=== PATIENT | female | born 1985 | race Hispanic/Latino ===

== ENCOUNTER 2025-10-05 13:04 | Outpatient (CLI) | payer OTHER ==
[2025-10-05 13:47] LABS: Hematocrit 32.5 % (34.9-44.5); Hemoglobin 10.4 g/dL (12.0-15.5); Mean Corpuscular Hemoglobin 26.0 pg (27.0-33.0); Mean Corpuscular Volume 81.3 fL (81.6-98.3); Platelet Count 359 10x3/uL (150-450); Red Blood Cell (RBC) Count 4.00 10x6/uL (3.90-5.03); White Blood Cell (WBC) Count 8.93 10x3/uL (3.5-10.5)
[2025-10-05 13:48] LABS: Glucose, Urine (Dipstick) Normal (Negative); Leukocyte Negative (Negative); Protein, Urine (Dipstick) 15 mg/dl (Neg-Trace); Specific Gravity, Urine 1.020 (1.005-1.030)
[2025-10-05 14:00] LABS: BHCG - Serum Negative (NEGATIVE); Pregs Control Background? CLEAR/WHITE (CLR/WHITE); Pregs Control Bar Appear? YES (CONTROL BAR)
== END 2025-10-05 13:05 | disposition home or self-care (01) ==
LOC: CSHLAB 13:04
PROVIDERS: ATTEND Obstetrics & Gynecology
DX: Z01.812 Encounter for preprocedural laboratory examination (principal); D25.9 Leiomyoma of uterus, unspecified; N92.0 Excessive and frequent menstruation with regular cycle; N85.2 Hypertrophy of uterus
CPT/HCPCS: 81003; 84703; 85027; 86850; 86900; 86901

== ENCOUNTER 2025-10-12 05:31 | Day surgery (SDC) | payer OTHER ==
[2025-10-05 13:31] VITALS: BMI 37.8
[2025-10-12] MEDS ORDERED: SUGAMMADEX SODIUM 200 MG/2 ML VIAL ONE (06:26)
[2025-10-12] MEDS ORDERED: Rocuronium Bromide 10 MG/ML (10ML VIAL) ONE (06:26)
[2025-10-12] MEDS ORDERED: PROPOFOL 40 ML ONE (06:26)
[2025-10-12] MEDS ORDERED: Ketorolac Tromethamine 30 MG (1 mL) VIAL ONE (06:26)
[2025-10-12] MEDS ORDERED: Lidocaine 2% MPF 10 ML AMP (For Epidural Use) ONE (06:33)
[2025-10-12] MEDS ORDERED: Bupivacaine HCl 0.5%/Epinephrine 1:200,000/PF 30 ml Vial ONE (06:33)
[2025-10-12] MEDS ORDERED: CEFAZOLIN 2 GM VIAL ONE (06:49)
[2025-10-12] MEDS ORDERED: PHENYLEPHRINE-NS 100 MCG/ML 10 ML SYRINGE ONE (08:03)
[2025-10-12] MEDS ORDERED: PROPOFOL 20 ML ONE ×2 (09:21→09:29)
[2025-10-12] MEDS ORDERED: oxyCODONE 5 MG TAB ONE ×2 (10:55→12:02)
[2025-10-12 11:45] LABS: Hematocrit 36.0 % (34.9-44.5); Hemoglobin 11.4 g/dL (12.0-15.5); Mean Corpuscular Hemoglobin 25.4 pg (27.0-33.0); Mean Corpuscular Volume 80.2 fL (81.6-98.3); Platelet Count 327 10x3/uL (150-450); Red Blood Cell (RBC) Count 4.49 10x6/uL (3.90-5.03); White Blood Cell (WBC) Count 17.30 10x3/uL (3.5-10.5)
== END 2025-10-12 14:36 | disposition home or self-care (01) ==
LOC: CSHSDC 05:31
PROVIDERS: ATTEND Obstetrics & Gynecology
DX: D25.1 Intramural leiomyoma of uterus (principal); N73.6 Female pelvic peritoneal adhesions (postinfective); N83.8 Other noninflammatory disorders of ovary, fallopian tube and broad ligament; K66.0 Peritoneal adhesions (postprocedural) (postinfection); Z98.51 Tubal ligation status
CPT/HCPCS: 36415; 85027; 88307; C1776; C1889; J1100; J1885; J2250; J2704; J3010; S2900